=== PATIENT | male | born 1975 | race American Indian/Alaskan Native ===

== ENCOUNTER 2016-09-04 11:16 | Emergency (ER) | payer BC ==
[2016-09-04 11:25] VITALS: BP 122/83
--- NOTE | 2016-09-04 12:40 | XRay Report ---
RIGHT HAND, 3 views: History: Injury, pain. Subtle chip fractures are noted at the base of the fourth metatarsal. There appears to be posterior subluxation at the base of the fourth metacarpal on the lateral image. The remaining bony structures are intact. No erosive joint pathology. IMPRESSION: Fracture/subluxation at the base of the fourth metacarpal as described. Consider further evaluation with CT and orthopedic consult.
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
== END 2016-09-04 13:21 | disposition home or self-care (01) ==
LOC: ED 11:16
DX: S62.339A Displaced fracture of neck of unspecified metacarpal bone, initial encounter for closed fracture (principal); S62.91XA Unspecified fracture of right hand, initial encounter for closed fracture; F17.200 Nicotine dependence, unspecified, uncomplicated; W22.8XXA Striking against or struck by other objects, initial encounter; Y93.89 Activity, other specified; Y99.8 Other external cause status; Y92.098 Other place in other non-institutional residence as the place of occurrence of the external cause

== ENCOUNTER 2021-06-12 16:24 | Emergency (ER) | payer OTHER, BC ==
[2021-06-12] MEDS ORDERED: ONDANSETRON 4 MG/2 ML INJ IV ONE (22:47)
[2021-06-12] MEDS ORDERED: MORPHINE 4 MG/1 ML INJ IV ONE (22:47)
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
[2021-06-12 23:36] LABS: Basophils % (Auto) 0.3 % (0.0-1.8); Eosinophils # (Auto) 0.2 K/mm3 (0.0-0.4); Hematocrit 41.9 % (35.5-45.6); Hemoglobin 13.6 gm/dl (11.8-15.2); Lymphocytes # (Auto) 2.4 K/mm3 (1.2-5.4); Lymphocytes % (Auto) 20.9 % (13.4-35.0); Mean Corpuscular HGB Conc 32 % (32-34); Mean Corpuscular Volume 86 fl (84-94); Platelet Count 200 K/mm3 (140-440); Red Blood Count 4.85 M/mm3 (3.65-5.03); Red Cell Distribution Width 13.7 % (13.2-15.2)
[2021-06-12 23:40] LABS: Alanine Aminotransferase 14 units/L (7-56); Albumin 4.6 g/dL (3.9-5); BUN/Creatinine Ratio 13; Blood Urea Nitrogen 12 mg/dL (9-20); Calcium 9.2 mg/dL (8.4-10.2); Hemolysis Index 4
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
[2021-06-13 02:08] VITALS: BP 170/103
== END 2021-06-13 02:06 | disposition home or self-care (01) ==
LOC: ED 16:24
DX: M54.2 Cervicalgia (principal); M54.9 Dorsalgia, unspecified; V89.2XXA Person injured in unspecified motor-vehicle accident, traffic, initial encounter; Y93.89 Activity, other specified; Y92.89 Other specified places as the place of occurrence of the external cause; Y99.8 Other external cause status; F17.200 Nicotine dependence, unspecified, uncomplicated; F10.20 Alcohol dependence, uncomplicated
CPT/HCPCS: 36415; 70450; 71260; 72125; 73030; 74177; 80053; 85025; 96374; 96375; 99284; J2270; J2405; Q9967